=== PATIENT | female | born 1985 | race Two or more races ===

== ENCOUNTER 2020-05-06 13:17 | Emergency (ER) | payer OTHER ==
[~2020-05-06] VITALS: Ht 157.5 cm; Wt 52.2 kg
--- NOTE | 2020-05-06 13:25 | NUR ---
Patient seen and examined by Dr. Dsouza.
[2020-05-06] MEDS ORDERED: ALPRAZOLAM 0.5 MG TABLET ONE (13:38)
[2020-05-06] MEDS ORDERED: ONDANSETRON 4 MG TAB.RAPDIS ONE (13:38)
[2020-05-06] MEDS ORDERED: ONDANSETRON 4 MG TAB.RAPDIS SL ONE (14:00)
[2020-05-06] MEDS ORDERED: ALPRAZOLAM 0.5 MG TABLET PO ONE (14:00)
--- NOTE | 2020-05-06 14:10 | NUR ---
Patient a/ox4, ambulatory, vitals stable. Per Dr. Dsouza patient's ready for discharge, patient made aware and got upset.
--- NOTE | 2020-05-06 14:35 | NUR ---
Patient ambulatory with steady gait, instructed not to drive, discharged to home in stable condition. Refused written and verbal after care instructions given. Refused to sign paperworks.
[2020-05-06 14:36] VITALS: BP 120/49
== END 2020-05-06 14:40 | disposition home or self-care (01) ==
LOC: ER 13:25
DX: F45.8 Other somatoform disorders (principal); R11.2 Nausea with vomiting, unspecified; F41.9 Anxiety disorder, unspecified; F31.9 Bipolar disorder, unspecified; J45.909 Unspecified asthma, uncomplicated
CPT/HCPCS: 99283; Q0162